=== PATIENT | female | born 2000 | race Caucasian/White ===

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

== ENCOUNTER 2019-08-17 11:10 | Emergency (ER) | payer OTHER ==
[~2019-08-17 11:10] MED LIST changes: +NAPR-885 PO; +OXYC1TAB23 PO; +PHEN-500 PO; +TIZA4CAP6 PO
[2019-08-17] MEDS ORDERED: FLUO20CA19 PO (11:24)
[2019-08-17 11:55] LABS: BASO # 0.1 10^3/uL (0.0-0.2); BASO % 0.6 % (0.0-1.0); EOS # 0.1 10^3/uL (0.0-0.5); EOS % 0.6 % (0.0-3.0); HEMATOCRIT 40.1 % (36.0-47.0); HEMOGLOBIN 12.5 g/dl (12.0-15.5); LYMPH # 1.4 10^3/uL (1.5-5.0); LYMPH % 16.9 % (24.0-44.0); MEAN CORPUSCULAR HEMOGLOBIN 26.7 pg (27.0-33.0); MEAN CORPUSCULAR HGB CONC 31.2 g/dl (32.0-36.5); MEAN CORPUSCULAR VOLUME 85.5 fl (80.0-96.0); MONO # 0.4 10^3/uL (0.0-0.8); MONO % 4.8 % (0.0-5.0); NEUTROPHILS # 6.3 10^3/uL (1.5-8.5); NEUTROPHILS % 76.9 % (36.0-66.0); PLATELET COUNT, AUTOMATED 295 10^3/uL (150-450); RED BLOOD COUNT 4.69 10^6/uL (4.00-5.40); WHITE BLOOD COUNT 8.2 10^3/uL (4.0-10.0)
[2019-08-17] MEDS ORDERED: MORPHINE 2 MG/ML 1ML VIAL (J2270) IV PRN (12:00)
[2019-08-17 12:18] LABS: BILIRUBIN,DIRECT 0.2 MG/DL (0.0-0.2); BILIRUBIN,TOTAL 0.5 MG/DL (0.2-1.0); TOTAL PROTEIN 7.6 GM/DL (6.4-8.2)
--- NOTE | 2019-08-17 13:08 | REP ---
CT abdomen and pelvis without IV or oral contrast: Renal stone protocol. History: Flank pain. Comparison study: December 08, 2018. CT findings: Digital preliminary district scout executive radiograph demonstrates an unremarkable bowel gas pattern. A vaginal tampon is seen in place. The lung bases are clear on axial CT images. The liver and the spleen are normal in size and homogeneous in texture. No adrenal lesion is seen. No abnormality is noted in the gallbladder or in the pancreas. There is mild hydronephrosis affecting the left kidney. One in the upper pole and the other in the lower pole. These are 3-4 mm in size. Left-sided hydroureter is traced to the pelvis where there is a ureterovesical junction stone measuring 3 mm in diameter. No right-sided urinary tract calculus is seen. No right-sided hydronephrosis seen. The appendix is surgically absent. Small and large bowel loops are unremarkable. No abdominal wall defect is seen. Impression: Mild hydronephrosis and hydroureter due to a 3 mm calculus at the ureterovesical junction on the left side. There are two intrarenal calculi in the left kidney as well. Otherwise negative. Electronically Signed by Cipriano Johnson MD 08/17/2019 01:44 P
[2019-08-17] MEDS ORDERED: PERC5TAB12 PO (13:20)
[2019-08-17] MEDS ORDERED: IBUP-1114 PO (13:23)
[2019-08-17 14:00] VITALS: BP 126/61
== END 2019-08-17 14:10 | disposition home or self-care (01) ==
LOC: M ED 11:10 → EDBD 11:10 → M ED 14:10
DX: N23 Unspecified renal colic (principal); N13.30 Unspecified hydronephrosis; Z87.440 Personal history of urinary (tract) infections; Z87.442 Personal history of urinary calculi; F41.9 Anxiety disorder, unspecified; F32.9 Major depressive disorder, single episode, unspecified; F17.200 Nicotine dependence, unspecified, uncomplicated; Z79.899 Other long term (current) drug therapy; Z88.2 Allergy status to sulfonamides; Z91.89 Other specified personal risk factors, not elsewhere classified; Z88.8 Allergy status to other drugs, medicaments and biological substances; Z88.7 Allergy status to serum and vaccine
CPT/HCPCS: 74176; 80047; 80076; 81001; 82150; 83690; 84702; 85025; 96374; 99284; J2270

== ENCOUNTER → 2019-09-26 | Outpatient (REF) | payer OTHER ==
[~2019-09-26] MED LIST changes: +FLUO20CA19 PO; +IBUP-1114 PO; +PERC5TAB12 PO
== END ==
LOC: M SFHCLERA 19:48
PROVIDERS: ATTEND Physician Assistant
DX: J02.9 Acute pharyngitis, unspecified (principal)

== ENCOUNTER 2022-11-16 12:02 | Inpatient (IN) | payer OTHER ==
[~2022-11-16] VITALS: Ht 175.3 cm; Wt 75.0 kg
[~2022-11-16 12:02] MED LIST changes: +ETON68IM SC; -FLUO20CA19 PO; +FLUO20CA22 PO; -NEXP1IMP SC
[2022-11-16 12:56] LABS: BASO # 0.1 10^3/uL (0.0-0.2); BASO % 0.8 % (0.0-1.0); EOS % 0.6 % (0.0-3.0); HEMATOCRIT 37.8 % (36.0-47.0); HEMOGLOBIN 12.3 g/dl (12.0-15.5); LYMPH # 1.2 10^3/uL (1.5-5.0); LYMPH % 17.4 % (24.0-44.0); MEAN CORPUSCULAR HEMOGLOBIN 28.6 pg (27.0-33.0); MEAN CORPUSCULAR HGB CONC 32.5 g/dl (32.0-36.5); MEAN CORPUSCULAR VOLUME 87.9 fl (80.0-96.0); MONO # 0.3 10^3/uL (0.0-0.8); MONO % 4.2 % (2.0-8.0); NEUTROPHILS # 5.1 10^3/uL (1.5-8.5); NEUTROPHILS % 76.8 % (36.0-66.0); PLATELET COUNT, AUTOMATED 250 10^3/uL (150-450); WHITE BLOOD COUNT 6.6 10^3/uL (4.0-10.0)
[2022-11-16] MEDS ORDERED: KETOROLAC 30 MG/ML 1ML VIAL IV ONE (13:05)
[2022-11-16 13:22] LABS: BLOOD UREA NITROGEN 11 MG/DL (9-23); CALCIUM LEVEL 8.7 MG/DL (8.5-10.1); CARBON DIOXIDE LEVEL 26 MMOL/L (20-31); CHLORIDE LEVEL 105 MMOL/L (98-107); CREATININE FOR GFR 0.83 MG/DL (0.55-1.30); GLOMERULAR FILTRATION RATE > 60.0 (>60); GLUCOSE, FASTING 87 MG/DL (60-100); POTASSIUM SERUM 3.5 MMOL/L (3.5-5.1); SODIUM LEVEL 140 MMOL/L (136-145)
[2022-11-16] MEDS ORDERED: MORPHINE 4 MG/ML 1ML VIAL IV PRN (13:30)
[2022-11-16] MEDS ORDERED: ONDANSETRON 4MG 2ML VIAL IV ONE (13:30)
[2022-11-16 13:32] LABS: HCG, SERUM QUALITATIVE NEGATIVE (NEGATIVE)
[2022-11-16] MEDS: fentaNYL 100 MCG/2 ML INJECTION IV PRN ×2 (16:08→16:45)
[2022-11-16] MEDS ORDERED: METOCLOPRAMIDE INJ 10MG/2ML VIAL IV ONE (16:30)
[2022-11-16] MEDS ORDERED: HOME MED LIST COMPLETE! XX SCH (17:20)
[2022-11-16] MEDS ORDERED: NALOXONE INJ 0.4MG/1ML VIAL IV PRN (17:25)
[2022-11-16] MEDS ORDERED: MORPHINE 1MG/ML IN 0.9% NACL 100ML IV BAG IV PRN (17:25)
[2022-11-16] MEDS ORDERED: NS 1,000 ML IV SCH (17:25)
[2022-11-16] MEDS ORDERED: EPIDURAL/PCA KEYS XX PRN (17:25)
[2022-11-16] MEDS ORDERED: diphenhydrAMINE 50MG/ML VIAL IV PRN (17:25)
[2022-11-16 17:52] LABS: RSV AMPLIFICATION NEGATIVE (NEGATIVE)
[2022-11-16] MEDS ORDERED: NS 1,000 ML IV ONE (18:00)
[2022-11-16] MEDS: cefTRIAXone SOD 1 GM in D5W MINI-BAG PLUS 50 ML IV SCH (18:32)
[2022-11-16 20:20] VITALS: BP 118/67
[2022-11-16] MEDS: KETOROLAC 30 MG/ML 1ML VIAL IV SCH (20:59)
[2022-11-16] MEDS: NS 1,000 ML IV SCH (21:00)
[2022-11-16 23:53] VITALS: BP 131/76
[2022-11-17] VITALS (9 sets, daily range): BP systolic 117–141; BP diastolic 70–91
[2022-11-17] MEDS: KETOROLAC 30 MG/ML 1ML VIAL IV SCH ×4 (02:28→20:01)
[2022-11-17] MEDS: NS 1,000 ML IV SCH (02:30)
[2022-11-17] MEDS: ONDANSETRON 4MG 2ML VIAL IV PRN ×3 (02:45→20:33)
[2022-11-17 06:37] LABS: BASO % 0.6 % (0.0-1.0); EOS % 0.6 % (0.0-3.0); HEMOGLOBIN 11.3 g/dl (12.0-15.5); LYMPH # 1.7 10^3/uL (1.5-5.0); LYMPH % 25.6 % (24.0-44.0); MEAN CORPUSCULAR HEMOGLOBIN 28.5 pg (27.0-33.0); MEAN CORPUSCULAR HGB CONC 32.3 g/dl (32.0-36.5); MEAN CORPUSCULAR VOLUME 88.4 fl (80.0-96.0); MONO # 0.4 10^3/uL (0.0-0.8); MONO % 6.5 % (2.0-8.0); NEUTROPHILS # 4.4 10^3/uL (1.5-8.5); NEUTROPHILS % 66.4 % (36.0-66.0); PLATELET COUNT, AUTOMATED 218 10^3/uL (150-450); RED BLOOD COUNT 3.96 10^6/uL (4.00-5.40); WHITE BLOOD COUNT 6.6 10^3/uL (4.0-10.0)
[2022-11-17 07:05] LABS: BLOOD UREA NITROGEN 8 MG/DL (9-23); CALCIUM LEVEL 8.2 MG/DL (8.5-10.1); CARBON DIOXIDE LEVEL 25 MMOL/L (20-31); CHLORIDE LEVEL 109 MMOL/L (98-107); CREATININE FOR GFR 0.76 MG/DL (0.55-1.30); GLOMERULAR FILTRATION RATE > 60.0 (>60); GLUCOSE, FASTING 79 MG/DL (60-100); POTASSIUM SERUM 3.5 MMOL/L (3.5-5.1); SODIUM LEVEL 142 MMOL/L (136-145)
[2022-11-17] MEDS ORDERED: DEXTROSE 50% 50ML SYRINGE IV PRN (07:10)
[2022-11-17] MEDS ORDERED: GLUCOSE 4GM CHEW TABLET PO PRN (07:10)
[2022-11-17] MEDS ORDERED: GLUCAGON INJ 1MG VIAL SC PRN (07:10)
[2022-11-17] MEDS: D5W/0.45% SODIUM CHLORIDE 1,000 ML IV SCH ×3 (08:30→20:00)
[2022-11-17] MEDS ORDERED: LIDOCAINE 2% 100MG/5ML SDV (FOR ANES.) As Ordered ONE (15:55)
[2022-11-17] MEDS ORDERED: propofoL 200 MG/20 ML VIAL As Ordered ONE (15:55)
[2022-11-17] MEDS ORDERED: MIDAZOLAM INJ 2MG/2ML VIAL As Ordered ONE (15:55)
[2022-11-17] MEDS ORDERED: ISOVUE-300 61% 100ML VIAL As Ordered ONE (15:55)
[2022-11-17] MEDS ORDERED: fentaNYL 100 MCG/2 ML INJECTION As Ordered ONE (15:56)
[2022-11-17] MEDS ORDERED: ONDANSETRON 4MG 2ML VIAL As Ordered ONE (16:39)
[2022-11-17] MEDS ORDERED: PERCOCET 5MG/325MG TAB PO PRN (17:30)
[2022-11-17] MEDS: cefTRIAXone SOD 1 GM in D5W MINI-BAG PLUS 50 ML IV SCH (17:55)
[2022-11-17] MEDS: PERCOCET 5MG/325MG TAB PO PRN (22:29)
[2022-11-18 01:50] VITALS: BP 116/64
[2022-11-18] MEDS: KETOROLAC 30 MG/ML 1ML VIAL IV SCH ×2 (02:03→07:55)
[2022-11-18] MEDS: D5W/0.45% SODIUM CHLORIDE 1,000 ML IV SCH (02:03)
[2022-11-18 05:24] VITALS: BP 114/76
[2022-11-18] MEDS ORDERED: CIPR-249 PO (07:11)
[2022-11-18] MEDS ORDERED: PYRI1TAB5 PO (07:11)
[2022-11-18] MEDS ORDERED: PERCOCET PO (07:11)
[2022-11-18] MEDS ORDERED: OXYB5TAB10 PO (07:11)
[2022-11-18 07:41] LABS: BASO % 0.5 % (0.0-1.0); EOS % 0.2 % (0.0-3.0); HEMATOCRIT 34.4 % (36.0-47.0); HEMOGLOBIN 11.1 g/dl (12.0-15.5); LYMPH # 1.9 10^3/uL (1.5-5.0); LYMPH % 30.2 % (24.0-44.0); MEAN CORPUSCULAR HEMOGLOBIN 28.6 pg (27.0-33.0); MEAN CORPUSCULAR HGB CONC 32.3 g/dl (32.0-36.5); MEAN CORPUSCULAR VOLUME 88.7 fl (80.0-96.0); MONO # 0.4 10^3/uL (0.0-0.8); MONO % 6.3 % (2.0-8.0); NEUTROPHILS % 62.6 % (36.0-66.0); PLATELET COUNT, AUTOMATED 207 10^3/uL (150-450); RED BLOOD COUNT 3.88 10^6/uL (4.00-5.40); WHITE BLOOD COUNT 6.4 10^3/uL (4.0-10.0)
[2022-11-18] MEDS: ONDANSETRON 4MG 2ML VIAL IV PRN (07:55)
[2022-11-18 08:10] LABS: BLOOD UREA NITROGEN < 5 MG/DL (9-23); CALCIUM LEVEL 8.3 MG/DL (8.5-10.1); CARBON DIOXIDE LEVEL 28 MMOL/L (20-31); CHLORIDE LEVEL 107 MMOL/L (98-107); CREATININE FOR GFR 0.73 MG/DL (0.55-1.30); GLOMERULAR FILTRATION RATE > 60.0 (>60); GLUCOSE, FASTING 111 MG/DL (60-100); POTASSIUM SERUM 4.1 MMOL/L (3.5-5.1); SODIUM LEVEL 139 MMOL/L (136-145)
[2022-11-18] MEDS ORDERED: PHENAZOPYRIDINE 100 MG TAB PO SCH (09:00)
[2022-11-18] MEDS ORDERED: oxyBUTYnin 5 MG TAB PO SCH (09:00)
[2022-11-18] MEDS: PERCOCET 5MG/325MG TAB PO PRN (09:08)
[2022-11-22 19:07] LABS: CA Oxalate Dihy 50 % (.); Ca Ox Monohydrate 50 % (.); Size 4x3 mm (.)
== END 2022-11-18 10:10 | disposition home or self-care (01) | DRG 446 ==
LOC: EDBD 12:02 → M ED 12:02 → M ED INP 12:03 → ENRESERV 18:36 → M MS5PR 20:17 → OBSVTOIN 11-17 07:09
PROVIDERS: ADMIT General Practice; ATTEND General Practice
PROC: 0TC78ZZ Extirpation of Matter from Left Ureter, Via Natural or Artificial Opening Endoscopic (ICD-10-PCS; 2022-11-17)
PROC: 0T778DZ Dilation of Left Ureter with Intraluminal Device, Via Natural or Artificial Opening Endoscopic (ICD-10-PCS; principal; 2022-11-17 15:45)
DX: N13.2 Hydronephrosis with renal and ureteral calculous obstruction (principal); Z20.822 Contact with and (suspected) exposure to COVID-19; Z88.2 Allergy status to sulfonamides; Z88.1 Allergy status to other antibiotic agents; Z91.048 Other nonmedicinal substance allergy status

== ENCOUNTER → 2023-04-12 | Outpatient (CLI) | payer OTHER ==
[~2023-04-12] MED LIST changes: +CIPR-249 PO; +OXYB5TAB10 PO; +PERCOCET PO; +PYRI1TAB5 PO
[2023-04-12 11:06] LABS: BASO # 0.1 10^3/uL (0.0-0.2); BASO % 0.9 % (0.0-1.0); EOS # 0.1 10^3/uL (0.0-0.5); EOS % 1.5 % (0.0-3.0); HEMOGLOBIN 14.1 g/dl (12.0-15.5); LYMPH # 2.2 10^3/uL (1.5-5.0); LYMPH % 34.5 % (24.0-44.0); MEAN CORPUSCULAR HEMOGLOBIN 28.1 pg (27.0-33.0); MEAN CORPUSCULAR VOLUME 87.6 fl (80.0-96.0); MONO # 0.6 10^3/uL (0.0-0.8); MONO % 9.1 % (2.0-8.0); NEUTROPHILS # 3.5 10^3/uL (1.5-8.5); NEUTROPHILS % 53.7 % (36.0-66.0); PLATELET COUNT, AUTOMATED 297 10^3/uL (150-450); RED BLOOD COUNT 5.02 10^6/uL (4.00-5.40); WHITE BLOOD COUNT 6.5 10^3/uL (4.0-10.0)
[2023-04-12 11:37] LABS: ALBUMIN 4.2 G/DL (3.2-5.2); ALKALINE PHOSPHATASE 51 U/L (46-116); ALT/SGPT 12 U/L (7.0-40); AST/SGOT 8 U/L (<34); BILIRUBIN,TOTAL 0.6 MG/DL (0.3-1.2); BLOOD UREA NITROGEN 11 MG/DL (9-23); CALCIUM LEVEL 9.1 MG/DL (8.5-10.1); CARBON DIOXIDE LEVEL 25 MMOL/L (20-31); CHLORIDE LEVEL 104 MMOL/L (98-107); CREATININE FOR GFR 0.68 MG/DL (0.55-1.30); GLOMERULAR FILTRATION RATE > 60.0 (>60); GLUCOSE, FASTING 73 MG/DL (60-100); POTASSIUM SERUM 4.8 MMOL/L (3.5-5.1); SODIUM LEVEL 139 MMOL/L (136-145); TOTAL PROTEIN 7.7 G/DL (5.7-8.2)
[2023-04-12 11:40] LABS: THYROID STIMULATING HORMONE 4.717 uIU/ML (0.55-4.78)
[2023-04-12 11:41] LABS: FREE T4 1.23 NG/DL (0.89-1.76)
== END ==
LOC: M PLALAB 08:44
PROVIDERS: ATTEND Student in an Organized Health Care Education/Training Program
DX: L65.9 Nonscarring hair loss, unspecified (principal)